=== PATIENT | female | born 1985 | race Caucasian/White ===

== ENCOUNTER 2017-07-06 09:57 | Emergency (ER) | payer SELFPAY ==
[~2017-07-06] VITALS: Ht 167.6 cm; Wt 69.4 kg
[2017-07-06 10:00] VITALS: BP 107/66; PULSE 75; RESP 15; TEMP 97.8; O2SAT 100
[2017-07-06] MEDS ORDERED: AMOX500T PO (11:18)
--- NOTE | 2017-07-06 11:20 | PD ---
HPI Chief Complaint: ENT Complaint Time Seen by Provider: 11:08 Travel History International Travel<30 days: No Contact w/Intl Traveler<30days: No Traveled to known affect area: No History of Present Illness HPI This 32-year-old female is complaining of right ear pain. He is having a respiratory infection for about a week and a half. She started having some pain in the right ear. She thinks she may have had some bleeding from the right ear. She has been using vapor treatment to try to remove wax from the ears. She tends to accumulate a lot of wax. 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) Cancer: Yes Cardiovascular Problems: No Diabetes: No Fibromyalgia: Yes Gastrointestinal Disorders: Yes Genitourinary: No Musculoskeletal: No Neurologic: No Psychiatric: Yes Reproductive: No Respiratory: No Immunizations Current: Yes Influenza Vaccination: No ?: Not : 1 Para: 1 Past Surgical History Abdominal Surgery: Yes Social History Alcohol Use: Yes Tobacco Use: No Substance Use: Yes (simon) Allergies-Medications (Allergen,Severity, Reaction): Coded Allergies: No Known Allergies (Verified , 07/06/17) Reported Meds & Prescriptions Reported Meds & Active Scripts Active No Active Prescriptions or Reported Medications Review of Systems General / Constitutional: Positive: Fever HENT: Positive: Sore Throat, Rhinitis, Earache Cardiovascular: No: Chest Pain or Discomfort, Palpitations Respiratory: Positive: Cough, No: Shortness of Breath Gastrointestinal: No: Nausea, Vomiting Genitourinary: No: Frequency, Dysuria Musculoskeletal: No: Myalgias Skin: No Rash Neurologic: No: Weakness Psychiatric: No: Anxiety Endocrine: No: Heat Intolerance Physical Exam Narrative GENERAL: Well-developed female SKIN: Focused skin assessment warm/dry. HEAD: Atraumatic. Normocephalic. EYES: Pupils equal and round. No scleral icterus. No injection or drainage. ENT: No nasal bleeding or discharge. Mucous membranes pink and moist. There are bilateral anterior cervical nodes. Neither TM can be visualized due to wax accumulation. I do not see any active bleeding NECK: Trachea midline. No JVD. CARDIOVASCULAR: Regular rate and rhythm. No murmur appreciated. RESPIRATORY: No accessory muscle use. Clear to auscultation. Breath sounds equal bilaterally. GASTROINTESTINAL: Abdomen soft, non-tender, nondistended. Hepatic and splenic margins not palpable. MUSCULOSKELETAL: No obvious deformities. No clubbing. No cyanosis. No edema. NEUROLOGICAL: Awake and alert. No obvious cranial nerve deficits. Motor grossly within normal limits. Normal speech. PSYCHIATRIC: Appropriate mood and affect; insight and judgment normal. Data Data Last Documented VS Vital Signs Date Time Temp Pulse Resp B/P (MAP) Pulse Ox O2 Delivery O2 Flow Rate FiO2 07/06/17 10:00 97.8 75 15 107/66 (80) 100 MDM Medical Decision Making Medical Screen Exam Complete: Yes Emergency Medical Condition: Yes Medical Record Reviewed: Yes Differential Diagnosis 33-year-old female has upper respiratory infection which has settled in the right ear. She'll be placed on amoxicillin Narrative Course Patient will be started on amoxicillin for right otitis media Diagnosis Primary Impression: Right otitis media Scripts Amoxicillin (Amoxicillin) 500 Mg Tab 500 MG PO TID for Infection for 10 Days, TAB 0 Refills Prov: Grey Sainz MD 07/06/17 Disposition: 01 DISCHARGE HOME Condition: Stable Grey Sainz MD Jul 06, 2017 11:20
== END 2017-07-06 11:25 | disposition home or self-care (01) ==
LOC: PHED 09:57 → PHEFT 11:25
DX: H66.91 Otitis media, unspecified, right ear (principal); F15.90 Other stimulant use, unspecified, uncomplicated
CPT/HCPCS: 99283